=== PATIENT | male | born 1980 | race Caucasian/White ===

== ENCOUNTER 2024-09-10 05:45 | Day surgery (SDC) | payer MEDICAID, SELFPAY ==
--- NOTE | 2024-09-08 19:45 | ESHP_ITS ---
RE: JOEL ORTIZ : 1980 DATE OF ADMISSION: 09/10/2024 HISTORY OF PRESENT ILLNESS: This patient is a 43-year-old white male who was a resident of [facility] and is scheduled for excision of insisted hydrocele of the cord. The patient had a large right inguinal scrotal hernia for which he was operated about a year ago. The patient had a history of left inguinal hernia, which was performed in 2006, but the swelling over the right groin persisted and I have done multiple aspirations of this fluid, which seems to be an insisted hydrocele of the cord. It may be from the sac that was left behind during the indirect inguinal hernia repair performed by me. In spite of repeated aspiration, the swelling has persisted and the patient therefore wanted this to be removed. PAST MEDICAL HISTORY: Revealed that he had mild mental retardation and he is on psychotropic medications. The patient's other problem consists of asthma for which he is taking albuterol inhaler. PHYSICAL EXAMINATION: GENERAL: A 43-year-old well-built, well-nourished white male who appeared to be about 5 feet 9 inches tall and weighing about 175 pounds. VITAL SIGNS: Temperature 97.2, pulse 87, respirations 18, BP 131/78 with oxygen saturation 96%. HEAD AND NECK: Normal. CHEST: Revealed good breath sounds. ABDOMEN: Soft, flat surgical scar seen on the left groin as well as on the recent surgery on the right groin. The patient has a 5 cm mass, which appears to be cystic located in the right groin at the root of the scrotum. GENITOURINARY: The testicles appear normal on both sides. IMPRESSION: 1. 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 2. Mild mental retraction. 3. History of asthma. COURSE OF ACTION: I advised the patient that he undergo excision of this lesion because it is not going away with repeated aspiration. This will require general anesthesia and the risk of the operation include wound infection. I explained to the patient that this will be a simple procedure than the hernia repair for which he underwent surgery last year and he is agreeable. DT: 17:01:49 TT: 19:43:00 Ref: [id number] - TID: [id number]
[2024-09-09 12:38] VITALS: BMI 23.6
--- NOTE | 2024-09-09 12:45 | SUR.PREOP ---
Ayleen from [facility] intructed to keep pt NPO after MN, Pt need to come in at 0600 tomorrow for surgery.
[2024-09-10] VITALS (8 sets, daily range): BP systolic 118–153; BP diastolic 71–95; PULSE 67–89; RESP 10–18; TEMP 36.4–36.8; O2SAT 95–100; BMI 23.1
[2024-09-10] MEDS: RINGERS LACTATED 1000 ML 1,000 ML 20 ML IV (07:01)
--- NOTE | 2024-09-10 09:56 | PD.SUROPNT ---
Date of Procedure 09/10/24 Pre Op Diagnosis Encysted hydrocele of the cord right side Post Op Diagnosis Same Procedure Excision of the encysted hydrocele of the cord right side Findings Patient had a well-formed thick sac which is size of a golf ball on the right groin attached to the cord structures. Procedure Description Of the patient was brought to the operating room endotracheal anesthesia given. Then his right groin and the scrotum was washed with Betadine solution and draped in a sterile manner. Timeout was performed. The made incision over the mass which was located at the root of the scrotum. This was actually the mobile swelling that contained fluid. There is a subcutaneous tissue and dissected out the sac which like a hydrocele was clearly encircled by dissection. Posteriorly it was firmly attached to this cord structures and therefore I did not attempt to for fear of bleeding. And opened the sac and let all the fluid out. Then I removed as much sac as possible by excising three fourths of the sac without causing injury to the cord structures. And the remaining sac was left in place especially in the posterior portion and sutured with a running 3-0 chromic. Then a diligent search was made for any capillary bleeding and it was controlled with cautery. Then the subcutaneous tissue was closed with 3-0 chromic and the skin by 4-0 Monocryl. Dressing was applied with 4 x 4 gauze and scrotal support. Patient tolerated procedure well Anesthesia GETA Pathology / specimen Other (Portions of the hydrocele) Estimated Blood Loss 20 Surgeon Mayra Todd MD Surgical Staff Operation Date: 09/10/24 08:00 Case Staff Anesthesiologist: Surinder Gee RN First Assistant: Marie Guerrero
--- NOTE | 2024-09-10 10:16 | SUR.PHASEI ---
0948: Pt received in [facility] via [facility]. Report Dr. Kim and Gary RN. Pt groggy. Easily aroused with eye opening then drifts back to sleep. Resp even, unlabored. VS stable. Dressing to right groin dry, clean, intact. Scrotal support in place. No c/o pain, discomfort. 1015: Pt has been resting with no complaints voiced. VS stable. Dressing remains dry, clean, intact.
--- NOTE | 2024-09-10 11:10 | SUR.PHASEII ---
1035: Pt more awake, alert. Resp even, unlabored. VS stable. Dressing right groin remains dry, clean, intact. No c/o pain, discomfort. Pt sitting up tolerating po fluids with no difficulty swallowing and no n/v. 1055: Pt fully awake, oriented x3. VS and dressing unchanged. Pt dressed and assisted to transport chair. Ambulation steady. Pt and [facility] staff stated understanding of discharge instructions. Report also called to receiving Unit 56. Report given to Merlyn ANDRADE. Pt discharged from [facility] in stable condition.
== END 2024-09-10 10:55 | disposition home or self-care (01) ==
PROVIDERS: Referring Provider Surgery; Visit Provider Surgery
PROC: (CPT 55040; principal; 2024-09-10 08:00)
DX: N43.0 Encysted hydrocele (principal); J45.909 Unspecified asthma, uncomplicated; F70 Mild intellectual disabilities
CPT/HCPCS: 55040; A4217; A4649; J0131; J2250; J2405; J2704; J2765; J3010; J3490; J7120; L8330; A9270